=== PATIENT | female | born 1950 | race Caucasian/White ===

== ENCOUNTER 2019-03-28 18:30 | Emergency (ER) | payer MEDICARE, BC ==
[2019-03-28] MEDS ORDERED: cefTRIAXone 1 GM, Lidocaine 1% 2.1 ML IM ONE ×2 (18:52)
--- NOTE | 2019-03-28 18:54 | EDM.PDOC ---
ED HPI GENERAL MEDICAL PROBLEM - General Chief Complaint: ENT Problem Stated Complaint: POSSIBLE STREP Time Seen by Provider: 03/28/19 18:48 Source of Information: Reports: Patient History Limitations: Reports: No Limitations - History of Present Illness INITIAL COMMENTS - FREE TEXT/NARRATIVE: Patient presents to the ED with complaints of sore throat that started 1 hour ago. She is having a hard time swallowing due to the pain. Denies recent illness or contact with ill people. She denies fever, chills, or diaphoresis. Nothing taken [employer] Onset: Today, Sudden Duration: Getting Worse Location: Reports: Neck (throat) Quality: Reports: Sharp, Stabbing Severity: Severe - Related Data Allergies Allergy/AdvReac Type Severity Reaction Status Date / Time clarithromycin [From Biaxin] Allergy Other Verified 03/28/19 18:56 niacin Allergy Cannot Verified 03/28/19 18:56 Remember Home Meds: Home Meds Estrogen,Con/M-Progest Acet [Prempro 0.3 MG-1.5 MG] 1 each PO DAILY 03/21/15 [ History] FLUoxetine [PROzac] 40 mg PO DAILY 03/21/15 [History] atorvaSTATin [Lipitor] 20 mg PO BEDTIME 03/21/15 [History] ALPRAZolam [Xanax] 0.5 mg PO QID PRN 05/28/15 [History] Cholecalciferol (Vitamin D3) [Vitamin D3] 2,000 units PO DAILY 05/28/15 [History ] Ibuprofen 600 mg PO TID 05/28/15 [History] Loratadine/Pseudoephedrine [Claritin-D 12 Hour] 1 tab PO BID 05/28/15 [History] Pregabalin [Lyrica] 1 tab PO BID 05/28/15 [History] Past Medical History Other Musculoskeletal History: myofascial pain syndrome Other Hematologic History: vit d deficiency Other Dermatologic History: scalp cyst removal. RECENT SKIN RASH TO MID SCAPULAR REGION - Past Surgical History Other Musculoskeletal Surgeries/Procedures:: bunionectomy ED ROS ENT - Review of Systems Review Of Systems: See Below Constitutional: Reports: No Symptoms HEENT: Reports: Throat Pain Respiratory: Reports: No Symptoms Cardiovascular: Reports: No Symptoms Endocrine: Reports: No Symptoms GI/Abdominal: Reports: No Symptoms : Reports: No Symptoms Musculoskeletal: Reports: No Symptoms Skin: Reports: No Symptoms Neurological: Reports: No Symptoms Psychiatric: Reports: No Symptoms Hematologic/Lymphatic: Reports: No Symptoms Immunologic: Reports: No Symptoms ED EXAM, ENT - Physical Exam Exam: See Below Exam Limited By: No Limitations General Appearance: Alert, WD/WN, Mild Distress Eye Exam: Bilateral Eye: EOMI, Normal Inspection, PERRL Ears: Normal TMs Nose: Normal Inspection, Normal Mucousa, No Blood Mouth/Throat: Normal Inspection, Normal Gums, Normal Lips, Normal Teeth, Pharyngeal Erythema, Throat Pain, Throat Swelling, Tonsillar Erythema, Tonsillar Exudates, Tonsillar Swelling, Uvular Edema Head: Atraumatic, Normocephalic Neck: Lymphadenopathy (L), Lymphadenopathy (R) Respiratory/Chest: No Respiratory Distress, Lungs Clear, Normal Breath Sounds, No Accessory Muscle Use, Chest Non-Tender Cardiovascular: Normal Peripheral Pulses, Regular Rate, Rhythm, No Edema, No Gallop, No JVD, No Murmur, No Rub Lymphatic: Adenopathy (as above) Departure - Departure Time of Disposition: 19:22 Disposition: Home, Self-Care 01 Condition: Good Clinical Impression: Strep throat - Discharge Information *PRESCRIPTION DRUG MONITORING PROGRAM REVIEWED*: Not Applicable *COPY OF PRESCRIPTION DRUG MONITORING REPORT IN PATIENT BRIJESH: Not Applicable Instructions: Strep Throat Forms: ED Department Discharge Additional Instructions: Plan 1. Take the z-pack as directed 2. Take ibuprofen and tylenol as needed for pain 3. May use throat spray as needed for pain 4. Stay well hydrated 5. Follow up with primary provider in 7-10 days to be sure infection has cleared 6. Call if you have any questions or concerns - Problem List & Annotations (1) Strep throat SNOMED Code(s): 70833230 Code(s): J02.0 - STREPTOCOCCAL PHARYNGITIS Status: Acute Priority: Medium - Problem List Review Problem List Initiated/Reviewed/Updated: Yes - Assessment/Plan Assessment:: strep pharyngitis Plan: Plan 1. Take the z-pack as directed 2. Take ibuprofen and tylenol as needed for pain 3. May use throat spray as needed for pain 4. Stay well hydrated 5. Follow up with primary provider in 7-10 days to be sure infection has cleared 6. Call if you have any questions or concerns
[2019-03-28 19:07] VITALS: BP 144/76; PULSE 80
== END 2019-03-28 19:22 | disposition home or self-care (01) ==
LOC: VM.ED 18:30
DX: J02.0 Streptococcal pharyngitis (principal); Z88.1 Allergy status to other antibiotic agents; Z88.8 Allergy status to other drugs, medicaments and biological substances; Z79.899 Other long term (current) drug therapy
CPT/HCPCS: 87081; 87880; 99283; J0696; J2001; 99282-GF

== ENCOUNTER 2024-12-24 17:49 | Emergency (ER) | payer MEDICARE ==
[2024-12-24 18:08] LABS: APPEARANCE,URINE SLIGHTLY CLOUDY (CLEAR); BILIRUBIN,URINE SMALL (NEGATIVE); COLOR,URINE BROWN (YELLOW); GLUCOSE,URINE NEGATIVE (NEGATIVE); KETONES,URINE TRACE mg/dL (NEGATIVE); LEUKOCYTE ESTERASE,URINE TRACE (NEGATIVE); NITRITE,URINE POSITIVE (NEGATIVE); OCCULT BLOOD,URINE LARGE (NEGATIVE); PH,URINE 5.5 (5.0-8.0); PROTEIN,URINE >=300 mg/dL (NEGATIVE); UROBILINOGEN,URINE 0.2 EU/dL (0.2)
[2024-12-24 18:16] VITALS: BP 144/69; PULSE 72
[2024-12-24 18:17] LABS: RBC,URINE >100 /HPF (NOT SEEN)
[2024-12-24 18:18] LABS: BACTERIA,URINE FEW /HPF (NOT SEEN); SQUAMOUS EPITHELIAL CELLS,UR FEW /HPF (NOT SEEN)
[2024-12-24] MEDS: Nitrofurantoin Monohydrate/Macrocrystalline 100 MG Cap PO STA (18:22)
== END 2024-12-24 18:29 | disposition home or self-care (01) ==
LOC: SUPCPDRO 17:49 → VM.ED 17:49
DX: N39.0 Urinary tract infection, site not specified (principal); Z90.49 Acquired absence of other specified parts of digestive tract; Z88.8 Allergy status to other drugs, medicaments and biological substances; Z79.899 Other long term (current) drug therapy
CPT/HCPCS: 81001; 87086; 99283; 99284; A9270-GY

== ENCOUNTER 2025-06-04 11:08 | Emergency (ER) | payer MEDICARE ==
[2025-06-04] MEDS ORDERED: Sodium Chloride 0.9% 10 ML Syringe FLUSH PRN (11:18)
[2025-06-04 11:34] LABS: BASOPHILS ABSOLUTE AUTO 0.0 x10^3/uL (0.0-0.2); BASOPHILS PERCENT AUTO 0.6 % (0.2-1.2); EOSINOPHILS ABSOLUTE AUTO 0.1 x10^3/uL (0.0-0.5); EOSINOPHILS PERCENT AUTO 2.2 % (0.0-4.0); IMMATURE GRAN ABSOLUTE AUTO 0.01 x10^3/uL (0.00-0.07); IMMATURE GRAN PERCENT AUTO 0.20 % (0.00-0.43); LYMPHOCYTES ABSOLUTE AUTO 1.8 x10^3/uL (1.0-4.8); LYMPHOCYTES PERCENT AUTO 28.8 % (25.0-50.0); MONOCYTES ABSOLUTE AUTO 0.5 x10^3/uL (0.0-0.8); MONOCYTES PERCENT AUTO 7.3 % (2.0-11.0); NEUTROPHILS ABSOLUTE AUTO 3.8 x10^3/uL (1.8-7.7); NEUTROPHILS PERCENT AUTO 60.9 % (50.0-80.0); PLATELET COUNT,PLT 289 x10^3/uL (130-400); RED BLOOD CELL COUNT 4.82 x10^6/uL (4.00-5.50); WHITE BLOOD CELL COUNT,WBC 6.3 x10^3/uL (4.0-10.0)
[2025-06-04 12:03] LABS: A/G RATIO 1.13; ALANINE AMINOTRANSFERASE,ALT 28 U/L (14-59); ASPARTATE AMNIOTRANSFERASE,AST 22 U/L (15-37); BILIRUBIN TOTAL 0.7 mg/dL (0.2-1.0); BLOOD UREA NITROGEN,BUN 14 mg/dL (7-18); CARBON DIOXIDE,CO2 27 mmol/L (21-32); CHLORIDE,CL 104 mmol/L (98-107); CREATININE 0.9 mg/dL (0.55-1.02); GLUCOSE RANDOM 92 mg/dL (70-99); POTASSIUM,K 3.8 mmol/L (3.5-5.1); PRO B-TYPE NATRIUR PEPT,BNPPRO 482 pg/mL (<=125); PROTEIN TOTAL,TP 6.8 g/dL (6.4-8.2); SODIUM,NA 140 mmol/L (136-145)
[2025-06-04 12:22] LABS: ESTIMATED GFR 67 mL/min (>=60)
[2025-06-04] MEDS: Iopamidol 612 MG/ML 100 ML Bottle IVPUSH ONE (13:28)
[2025-06-04 13:35] VITALS: BP 142/78; PULSE 54
== END 2025-06-04 14:47 | disposition home or self-care (01) ==
LOC: VM.ED 11:08
DX: R07.9 Chest pain, unspecified (principal); R10.12 Left upper quadrant pain; Z88.5 Allergy status to narcotic agent; Z88.8 Allergy status to other drugs, medicaments and biological substances; Z79.82 Long term (current) use of aspirin; Z79.899 Other long term (current) drug therapy; Z90.49 Acquired absence of other specified parts of digestive tract
CPT/HCPCS: 36415; 71045; 74177; 80053; 83690; 83735; 83880; 84484; 85025; 93005; 93010; 99284; 99285; A9270-GY; Q9967